=== PATIENT | female | born 1955 | race Two or more races ===

== ENCOUNTER 2023-12-10 05:25 | Day surgery (SDC) | payer OTHER ==
[2023-12-08 13:45] LABS: HEMOGLOBIN 13.8 g/dL (12.0-15.00); MEAN CELL VOLUME 97.4 fL (80.00-100.00); MEAN CORPUSCULAR HEMOGLOBIN 32.7 pg (27.00-32.0); MEAN CORPUSCULAR HGB CONC 33.6 g/dl (32.0-36.0); PLATELET COUNT 265 K/uL (150-450); RED BLOOD COUNT 4.21 M/uL (4.00-6.00); RED CELL DISTRIBUTION WIDTH 13.5 % (11.5-14.5)
[2023-12-08 13:48] LABS: PH,URINE 7.5 (5.0-8.0); URINE APPEARANCE Clear; URINE BILIRRUBIN Negative (NEGATIVE); URINE BLOOD Moderate; URINE COLOR Yellow; URINE GLUCOSE Negative (NEGATIVE); URINE KETONE Trace (NEGATIVE); URINE LEUKOCYTE Moderate; URINE NITRATE Negative; URINE PROTEIN Negative (NEGATIVE); URINE UROBILINOGEN 0.2 E.U./dl
[2023-12-08 13:51] LABS: URINE BACTERIA 57.9 uL (0.0-1933); URINE EPITHELIAL CELLS 14.3 uL (0.0-38.8); URINE RBC 443.5 uL (0.0-20.8); URINE WBC 203.8 uL (0.0-23.2)
[2023-12-08 13:53] LABS: URINE CAST 0.15 uL (0.0-1.40)
[2023-12-08 13:54] VITALS: BP 145/85
[2023-12-08 14:07] LABS: PARTIAL THROMBOPLASTIN TIME 30.3 SECONDS (22.0-34.0); PROTHROMBIN TIME 10.9 SECONDS (9.0-11.5)
[2023-12-08 14:32] LABS: ALBUMIN 4.1 gm/dL (3.4-5.0); BILIRUBIN TOTAL 0.48 mg/dL (0.3-1.2); CREATININE SERUM 0.67 mg/dL (0.55-1.02); GFR 87.79; GLOBULINA 3.7 G/DL (2.4-3.5); POTASSIUM 4.23 mEq/L (3.5-5.1); TOTAL PROTEIN 7.8 gm/dL (6.4-8.2)
[~2023-12-10] VITALS: Ht 180.3 cm; Wt 81.6 kg
[~2023-12-10 05:25] MED LIST: ACTOS15 MG PO
[2023-12-10] MEDS ORDERED: POVIDONE-IODINE 118 ML BOTT TOP ONE (09:00)
[2023-12-10] MEDS ORDERED: FAMOTIDINE/PF 20 MG/2 ML VIAL IV ONE (09:00)
[2023-12-10] MEDS ORDERED: MORPHINE SULFATE 4 MG/ML VIAL IV ONE ×2 (12:05→12:35)
[2023-12-10] MEDS ORDERED: MORPHINE SULFATE 4 MG/ML VIAL IV PRN (13:15)
[2023-12-10] MEDS ORDERED: PROMETHAZINE HCL 50 MG/ML AMPUL IM PRN (13:15)
== END 2023-12-10 16:00 | disposition home or self-care (01) ==
LOC: CIR.AMB 05:25
PROVIDERS: ATTEND Obstetrics & Gynecology
DX: C54.1 Malignant neoplasm of endometrium (principal); N84.0 Polyp of corpus uteri; D25.0 Submucous leiomyoma of uterus; N95.0 Postmenopausal bleeding; E11.9 Type 2 diabetes mellitus without complications; H52.10 Myopia, unspecified eye

== ENCOUNTER 2024-01-21 07:33 | Outpatient (CLI) | payer OTHER | END 2024-01-21 07:34 | disposition home or self-care (01) | LOC: NUCLEAR 07:33 | PROVIDERS: ATTEND Obstetrics & Gynecology Gynecologic Oncology | DX: C54.1 Malignant neoplasm of endometrium (principal) | CPT/HCPCS: 78815; A9552 ==

== ENCOUNTER 2024-01-25 07:45 | Inpatient (IN) | payer OTHER ==
[~2024-01-25] VITALS: Ht 175.3 cm; Wt 81.6 kg
[2024-01-25 08:57] VITALS: BP 129/76
[2024-01-25 10:30] LABS: RH NEGATIVE
[2024-01-31] MEDS ORDERED: METRONIDAZOLE/SODIUM CHLORIDE 100 ML IV ONE (18:00)
[2024-01-31] MEDS ORDERED: HEMOSTATIC MATRIX 1 KIT KIT TOP ONE (18:00)
[2024-01-31] MEDS ORDERED: POVIDONE-IODINE 118 ML BOTT TOP ONE (18:00)
[2024-01-31] MEDS ORDERED: CEFAZOLIN SODIUM 2,000 MG in 0.9 % SODIUM CHLORIDE 100 ML IV ONE (18:00)
[2024-01-31] MEDS ORDERED: SURGIFLO APPLICATOR 1 EACH APPL TOP ONE (18:00)
[2024-01-31] MEDS ORDERED: VISTASEAL DUAL APPICATOR 1 EACH APPL TOP ONE (19:00)
[2024-01-31] MEDS ORDERED: THROMBIN,HU/FIBRINOGEN/CALCIUM 10 ML SYRINGE TOP ONE (19:00)
[2024-01-31] MEDS ORDERED: KETOROLAC TROMETHAMINE 30 MG VIAL IV ONE (19:15)
[2024-01-31] MEDS ORDERED: OxyCODONE HCL 5 MG TABLET (ROXICODONE) PO PRN (19:15)
[2024-01-31] MEDS ORDERED: MORPHINE SULFATE 4 MG/ML CARTRIDGE IV PRN (19:15)
[2024-01-31] MEDS ORDERED: RINGERS SOLUTION,LACTATED 1,000 ML IV SCH (19:15)
[2024-01-31] MEDS ORDERED: ONDANSETRON HCL 2 MG/ML VIAL IV PRN (19:15)
[2024-01-31] MEDS ORDERED: SUGAMMADEX SODIUM 200 MG/2 ML VIAL IV ONE (20:00)
[2024-01-31] MEDS ORDERED: DOCUSATE SODIUM 100MG CAP PO SCH (21:00)
[2024-01-31] MEDS ORDERED: FAMOTIDINE/PF 20 MG/2 ML VIAL IV PUSH SCH (21:00)
[2024-01-31] MEDS ORDERED: MORPHINE SULFATE 4 MG/ML VIAL IV ONE (21:15)
[2024-01-31 21:39] LABS: HEMATOCRIT 39.5 % (36.0-45.00); HEMOGLOBIN 12.9 g/dL (12.0-15.00); MEAN CELL VOLUME 95.7 fL (80.00-100.00); MEAN CORPUSCULAR HEMOGLOBIN 31.1 pg (27.00-32.0); MEAN CORPUSCULAR HGB CONC 32.5 g/dl (32.0-36.0); PLATELET COUNT 244 K/uL (150-450); RED BLOOD COUNT 4.13 M/uL (4.00-6.00); RED CELL DISTRIBUTION WIDTH 13.1 % (11.5-14.5)
[2024-01-31 22:02] LABS: ALBUMIN 3.4 gm/dL (3.4-5.0); CALCIUM 8.5 mg/dL (8.5-10.1); CREATININE SERUM 0.57 mg/dL (0.55-1.02); GFR 105.79; PHOSPHOROUS 3.9 mg/dL (2.5-4.9); POTASSIUM 4.11 mEq/L (3.5-5.1)
[2024-02-01] MEDS ORDERED: KETOROLAC TROMETHAMINE 30 MG VIAL IM SCH
[2024-02-01] MEDS ORDERED: GABAPENTIN 300 MG CAPSULE PO SCH (01:00)
[2024-02-01] MEDS ORDERED: CEFAZOLIN SODIUM 1,000 MG VIAL IV SCH (01:00)
[2024-02-01 06:41] LABS: HEMATOCRIT 36.1 % (36.0-45.00); MEAN CELL VOLUME 94.9 fL (80.00-100.00); MEAN CORPUSCULAR HEMOGLOBIN 31.6 pg (27.00-32.0); MEAN CORPUSCULAR HGB CONC 33.3 g/dl (32.0-36.0); PLATELET COUNT 245 K/uL (150-450); RED BLOOD COUNT 3.81 M/uL (4.00-6.00); RED CELL DISTRIBUTION WIDTH 12.7 % (11.5-14.5)
[2024-02-01 07:38] LABS: CALCIUM 8.9 mg/dL (8.5-10.1); CREATININE SERUM 0.52 mg/dL (0.55-1.02); GFR 117.62; PHOSPHOROUS 4.3 mg/dL (2.5-4.9); POTASSIUM 4.1 mEq/L (3.5-5.1)
[2024-02-01 08:03] VITALS: BP 120/71
[2024-02-01] MEDS ORDERED: ENOXAPARIN SODIUM 40 MG/0.4 ML SYRINGE SUBCUTANEO SCH (09:00)
== END 2024-02-01 10:49 | disposition home or self-care (01) | DRG 740 ==
LOC: O/R 01-31 06:44 → OB/GYN 01-31 07:45
PROVIDERS: ADMIT Obstetrics & Gynecology Gynecologic Oncology; ATTEND Obstetrics & Gynecology Gynecologic Oncology
PROC: 0UT74ZZ Resection of Bilateral Fallopian Tubes, Percutaneous Endoscopic Approach (ICD-10-PCS; 2024-01-31)
PROC: 0UT24ZZ Resection of Bilateral Ovaries, Percutaneous Endoscopic Approach (ICD-10-PCS; 2024-01-31)
PROC: 07BD4ZZ Excision of Aortic Lymphatic, Percutaneous Endoscopic Approach (ICD-10-PCS; 2024-01-31)
PROC: 07BC4ZZ Excision of Pelvis Lymphatic, Percutaneous Endoscopic Approach (ICD-10-PCS; 2024-01-31)
PROC: 8E0W4CZ Robotic Assisted Procedure of Trunk Region, Percutaneous Endoscopic Approach (ICD-10-PCS; 2024-01-31)
PROC: 0UT94ZZ Resection of Uterus, Percutaneous Endoscopic Approach (ICD-10-PCS; principal; 2024-01-31 14:30)
DX: C54.1 Malignant neoplasm of endometrium (principal); C77.2 Secondary and unspecified malignant neoplasm of intra-abdominal lymph nodes; C77.5 Secondary and unspecified malignant neoplasm of intrapelvic lymph nodes; Z20.822 Contact with and (suspected) exposure to COVID-19
CPT/HCPCS: 58548; S2900